=== PATIENT | male | born 1950 | race Caucasian/White ===

== ENCOUNTER 2025-08-11 15:17 | Outpatient (AMB) | payer OTHER, SELFPAY ==
--- NOTE | 2025-08-11 15:19 | MHC.OFFVIS ---
Intake Visit Reasons: 3m PD Accompanied by: Daughter Allergies Penicillins Allergy (Unknown, Verified 08/11/25 15:24) Unknown Medication List - Last Reconciled 08/11/25 by Mildred Sosa CNP amiodarone 200 mg PO DAILY apixaban (Eliquis) 5 mg PO BID carbidopa-levodopa 25-100 mg tabs PO BID lisinopril 20 mg PO DAILY metformin 500 mg PO DAILY pravastatin 40 mg PO DAILY primidone 50 mg PO BID tolterodine ER 4 mg PO DAILY trihexyphenidyl 2 mg PO BID HPI Comments Details: 74-year-old man with hand tremors that came on insidiously, previously treated by Dr. Pisano with both antiparkinsonian and benign essential tremor medications. He was here with his daughter (Trena). He had two falls in 05/2025. He was admitted to [facility] after his second fall. His heart rate was found to be in the 20's, propranolol was discontinued and he had pacemaker put in. He was discharged to rehab for few weeks. Walking with walker, no further falls. He did not increase carbidopa-levodopa 25-100mg to three times a day, as he was given medication twice a day in the hospital and was discharged on same, which he has continued to take. He was still having more tremors to hands. No significant difficulty eating or drinking with weighted utensils. No difficuly swallowing. They were considering going to [facility] movement disorder clinic for second opinion. [facility] Medical History (Updated 08/11/25 @ 15:22 by Mildred Sosa CNP) Benign essential tremor Review of Systems Const Denies chills, Denies daytime sleepiness, Denies difficulty sleeping, Denies fatigue, Denies fever(s), Denies frequent falls, Denies headache(s), Denies increased appetite, Denies poor appetite, Denies snoring, Denies weakness, Denies weight gain and Denies weight loss Eyes Denies loss of vision ENT Denies vertigo, Denies dizziness, Denies headache(s) and Denies neck pain Card Denies chest pain at rest, Denies chest pain with activity, Denies syncope, Denies leg edema, Denies palpitations, Denies dyspnea and Denies dyspnea on exertion Resp Denies cough, Denies dyspnea, Denies dyspnea on exertion and Denies snoring GI Denies abdominal pain, Denies constipation, Denies heartburn, Denies diarrhea and Denies nausea Denies urinary frequency, Denies urinary incontinence and Denies urinary urgency Musc Denies abnormal gait, Denies back pain, Denies myalgias, Denies arthralgias, Denies neck pain, Denies numbness and Denies tingling Neuro Denies abnormal gait, Denies vertigo, Denies dizziness, Denies syncope, Denies frequent falls, Denies headache(s), Denies lack of coordination, Denies loss of vision, Denies memory loss, Denies numbness, Denies Other visual disturbances, Denies restless legs, Denies seizure-like activity, Denies tingling, Denies paresthesias, Reports tremor(s) and Denies weakness Psych Denies anxiety, Denies depression, Denies auditory hallucinations, Denies memory loss and Denies visual hallucinations Endo Denies fatigue and Denies palpitations Physical Exam Const Other: General Appearance:? normal, in no acute distress. Heart:? S1, S2 normal, no murmurs. Lungs:? clear anteriorly and posteriorly. Musculoskeletal:? normal. Extremities:? no edema. Psych:? alert, oriented, cognitive function intact, cooperative with exam. Neuro Other: Abnormal Neurological Findings:?Coarse 6 Hz large amplitude low frequency resting tremors of the hands that are slightly ameliorated by holding his hands up, but are constantly present. BUE rigidity and cogwheeling L > R. Decreased facial expressions. Mild bradykinesia. Slight forward leaning posture. Walking with walker, short stepped gait.? Mental Status: alert and oriented X 3. Normal attention, orientation, memory, and affect. Cranial Nerves: Pupils are equal, round, and reactive to light. External ocular muscles are intact. Visual dubon are full, no ptosis. Face is symmetrical, no facial weakness or droop. Facial sensations are normal. Tongue protrudes in midline. Palate elevates symmetrically. Shoulder shrugging is normal Motor Examination: Normal muscle tone, bulk and strength. No atrophy or fasciculations. No drift of the extended upper extremities. DTR 2+. Plantars are flexor. Sensory Exam: Normal light touch, temperature, pinprick, vibration, and joint-position sensations. Rhomberg sign is absent. Coordination: No ataxia. No titubation. Gait Exam: As above. Cerebellar Signs: [id number] is okay. Extrapyramidal System: As above. Speech: Normal. Assessment & Plan Assessment & Plan (1) Benign essential tremor: Code(s): G25.0 - Essential tremor Category: Medical Plan: Continue primidone 50mg 1 tablet twice a day. (2) Parkinson disease, symptomatic: Code(s): G20.A1 - Parkinson's disease without dyskinesia, without mention of fluctuations Category: Medical Plan: Increase carbidopa-levodopa 25-100mg 1 tablet three times a day. Continue trihexyphenidyl 2mg 1 tablet with meals twice a day. Medications: Changed From carbidopa-levodopa 25-100 mg PO BID To carbidopa-levodopa 25-100 mg 1 tab PO TID 270 tabs 1RF 90 days Coding Level of Care Code Est Pt Level 4 (75930) Diagnoses Benign essential tremor G25.0 Parkinson disease, symptomatic G20.A1
== END 2025-08-11 15:44 | disposition home or self-care (01) ==
LOC: HO.HSM 15:18
PROVIDERS: PCP Internal Medicine; Visit Provider Registered Nurse
DX: G25.0 Essential tremor (principal); G20.A1 Parkinson's disease without dyskinesia, without mention of fluctuations
CPT/HCPCS: 99214